=== PATIENT | female | born 1975 ===

== ENCOUNTER → 2017-07-16 | Emergency (ER) | payer OTHER | END | disposition home or self-care (01) | LOC: ER 10:12 | DX: S60.512A Abrasion of left hand, initial encounter (principal); S60.511A Abrasion of right hand, initial encounter; S60.410A Abrasion of right index finger, initial encounter; X58.XXXA Exposure to other specified factors, initial encounter; Y93.89 Activity, other specified; Y92.89 Other specified places as the place of occurrence of the external cause; Y99.8 Other external cause status ==

== ENCOUNTER 2019-06-23 11:06 | Outpatient (CLI) | payer OTHER | END 2019-06-23 11:20 | disposition home or self-care (01) | LOC: MAMO-SONO 11:06 | DX: Z12.31 Encounter for screening mammogram for malignant neoplasm of breast (principal); Z87.898 Personal history of other specified conditions ==